=== PATIENT | female | born 1955 | race Caucasian/White ===

== ENCOUNTER 2022-08-05 09:06 | Emergency (ER) | payer MEDICARE, BC ==
[~2022-08-05] VITALS: Ht 167.6 cm; Wt 47.7 kg
[2022-08-05 09:39] VITALS: BP 175/77
[2022-08-05] MEDS ORDERED: HYDROcodone/acetaminophen 5mg/325mg tablet PO ONE (11:30)
[2022-08-05] MEDS ORDERED: HYDR-3965 PO (12:08)
[2022-08-09] MEDS ORDERED: AMLO5TAB16 PO (16:43)
[2022-08-09] MEDS ORDERED: LANS30CA56 PO (16:43)
[2022-08-09] MEDS ORDERED: METO50TA16 PO (16:43)
[2022-08-09] MEDS ORDERED: LOSA50TA64 PO (16:43)
[2022-08-09] MEDS ORDERED: MAGN400C PO (16:47)
[2022-08-09] MEDS ORDERED: POTA99TA26 PO (16:47)
== END 2022-08-05 12:22 | disposition home or self-care (01) ==
LOC: ER 09:07
DX: S82.024A Nondisplaced longitudinal fracture of right patella, initial encounter for closed fracture (principal); M25.561 Pain in right knee; I10 Essential (primary) hypertension; Z98.890 Other specified postprocedural states; Z88.0 Allergy status to penicillin; Z79.899 Other long term (current) drug therapy; W18.30XA Fall on same level, unspecified, initial encounter; Y93.89 Activity, other specified; Y92.89 Other specified places as the place of occurrence of the external cause; Y99.8 Other external cause status
CPT/HCPCS: 29505; 73564; 99283